=== PATIENT | female | born 1950 | race Caucasian/White ===

== ENCOUNTER 2022-02-06 12:12 | Outpatient (CLI) | payer MEDICARE, OTHER | END 2022-02-06 12:13 | disposition home or self-care (01) | LOC: MADRAD 12:12 | PROVIDERS: ATTEND Registered Nurse | DX: S99.921A Unspecified injury of right foot, initial encounter (principal); S92.421A Displaced fracture of distal phalanx of right great toe, initial encounter for closed fracture ==